=== PATIENT | male | born 2005 | race African-American/Black ===

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

== ENCOUNTER 2024-08-13 16:54 | Emergency (ER) | payer BC ==
[2024-08-13 17:12] VITALS: BP 133/78; PULSE 78; RESP 18; TEMP 98.4; BMI 26.1
[2024-08-13] MEDS ORDERED: IBUPROFEN 400 MG TABLET (FP) PO ONE (18:12)
[2024-08-13] MEDS ORDERED: ACETAMINOPHEN 500 MG TABLET (FP) ONE (18:12)
[2024-08-13] MEDS: ACETAMINOPHEN 500 MG TABLET (FP) PO ONE (18:15)
[2024-08-13] MEDS: IBUPROFEN 400 MG TABLET (FP) PO ONE (18:15)
== END 2024-08-13 19:24 | disposition home or self-care (01) ==
LOC: FER 16:54
DX: S69.92XA Unspecified injury of left wrist, hand and finger(s), initial encounter (principal); W50.0XXA Accidental hit or strike by another person, initial encounter; Y93.67 Activity, basketball
CPT/HCPCS: 73110-TC-LT-FY; 73130-TC-LT-FY; 99283-25

== ENCOUNTER 2025-08-18 09:15 | Emergency (ER) | payer BC ==
[2025-08-18 09:25] VITALS: BP 119/64; PULSE 67; RESP 20; TEMP 98.2; BMI 28.3
== END 2025-08-18 11:03 | disposition home or self-care (01) ==
LOC: JER 09:15
DX: R19.03 Right lower quadrant abdominal swelling, mass and lump (principal); Z48.02 Encounter for removal of sutures
CPT/HCPCS: 76705-TC; 99284-25